=== PATIENT | female | born 1990 | race American Indian/Alaskan Native ===

== ENCOUNTER 2017-08-29 10:35 | Emergency (ER) | payer MEDICAID ==
[2017-08-29] MEDS ORDERED: MOTRIN PO ONE (10:59)
--- NOTE | 2017-08-29 11:01 | Emergency Department Report ---
Blank Doc - Documentation Documentation: Patient is a 26-year-old female who states last night she was angry and she hit her hand on her radial. Patient has swelling to the area of the fourth and fifth metacarpal. There is loss of the knuckle. Patient is unable to make a fist. Patient is adamant that she did not punch anything however she does have the swelling distribution of a boxer's fracture. Patient will be sent for x- ray for further evaluation patient will be reassessed.
--- NOTE | 2017-08-29 11:44 | XRay Report ---
RIGHT HAND RADIOGRAPHS INDICATION: Right hand injury. COMPARISON: None similar at this institution. FINDINGS: AP, lateral and oblique right hand radiographs demonstrate a possibly comminuted acute fracture involving the fifth metacarpal distally about the neck with angulation of approximately 130degrees on the oblique view with its apex pointing dorsal. Overlying soft tissues swelling also noted. No joint involvement. Normal remainder exam. CONCLUSION: Acute angulated, likely comminuted fracture involving the right fifth metacarpal distally with overlying soft tissue swelling, as described. Please correlate. Thank you for the opportunity to participate in this patient's care.
[2017-08-29] MEDS ORDERED: NORCO 5/325 PO ONE (11:52)
--- NOTE | 2017-08-29 11:52 | Emergency Department Report ---
ED Upper Extremity Inj HPI - General Chief Complaint: Extremity Injury, Upper Stated Complaint: RIGHT HAND INJURY/SWOLLEN Time Seen by Provider: 08/29/17 10:51 Source: patient Mode of arrival: Ambulatory Limitations: No Limitations - History of Present Illness Initial Comments: Patient is a 26-year-old female who states last night she was angry and she hit her hand on her radial. Patient has swelling to the area of the fourth and fifth metacarpal. There is loss of the knuckle. Patient is unable to make a fist. Patient is adamant that she did not punch anything however she does have the swelling distribution of a boxer's fracture. Patient will be sent for x- ray for further evaluation patient will be reassessed. Complaint: Injury to:: right, hand Other Extremity Injury: Hand: Right Handedness: right Place: home Severity scale (0 -10): 5 Improves With: none Worsens With: movement of extremity Context: direct blow - Related Data Previous Rx's Medication Instructions Recorded Last Taken Type HYDROcodone/APAP 5-325 [[place] 1 each PO Q6HR PRN #20 tablet 08/29/17 Unknown Rx 5/325] Allergies Allergy/AdvReac Type Severity Reaction Status Date / Time No Known Allergies Allergy Unverified 08/29/17 10:38 ED Review of Systems ROS: Stated complaint: RIGHT HAND INJURY/SWOLLEN Other details as noted in HPI Constitutional: denies: chills, fever Eyes: denies: eye pain, eye discharge, vision change ENT: denies: ear pain, throat pain Respiratory: denies: cough, shortness of breath, wheezing Cardiovascular: denies: chest pain, palpitations Endocrine: no symptoms reported Gastrointestinal: denies: abdominal pain, nausea, diarrhea Genitourinary: denies: urgency, dysuria, discharge Musculoskeletal: myalgia Skin: denies: rash, lesions Neurological: denies: headache, weakness, paresthesias Psychiatric: denies: anxiety, depression Hematological/Lymphatic: denies: easy bleeding, easy bruising ED Past Medical Hx - Past Medical History Previous Medical History?: No - Surgical History Past Surgical History?: No - Social History Smoking Status: Current Every Day Smoker Substance Use Type: Alcohol - Medications Home Medications: Home Medications Medication Instructions Recorded Confirmed Last Taken Type HYDROcodone/APAP 5-325 [[place] 1 each PO Q6HR PRN #20 tablet 08/29/17 Unknown Rx 5/325] ED Physical Exam - General Limitations: No Limitations General appearance: alert, in no apparent distress - Head Head exam: Present: atraumatic, normocephalic - Eye Eye exam: Present: normal appearance - ENT ENT exam: Present: mucous membranes moist - Neck Neck exam: Present: normal inspection - Respiratory Respiratory exam: Present: normal lung sounds bilaterally. Absent: respiratory distress - Cardiovascular Cardiovascular Exam: Present: regular rate, normal rhythm. Absent: systolic murmur, diastolic murmur, rubs, gallop - GI/Abdominal GI/Abdominal exam: Present: soft, normal bowel sounds - Rectal Rectal exam: Present: deferred - Extremities Exam Extremities exam: Present: tenderness (rigtht post hand swelling mild deformity ), normal capillary refill, joint swelling. 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 Absent: abrasion, laceration, ecchymosis, crepidus , dislocation, erythema, nail avulsion, subungual hematoma Neuro motor exam: Present: wrist extension intact, thumb opposition intact, thumb IP flexion intact, thumb adduction intact, fingers 2-5 abduction intact Neurosensory exam: Present: 2-point discrimination, radial nerve intact, ulnar nerve intact, median nerve intact Vascular: Present: radial pulse, brachial pulse, ulnar pulse. Absent: vascular compromise, Pallo, normal capillary refill, pulse deficit radial art, pulse deficit ulnar art, pulse deficit brachial art - Back Exam Back exam: Present: normal inspection - Neurological Exam Neurological exam: Present: alert, oriented X3, CN II-XII intact, normal gait, reflexes normal - Psychiatric Psychiatric exam: Present: normal affect - Skin Skin exam: Present: warm, dry, intact, normal color. 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 Zapien will call in am to confirm appointment, rx for lortab prn pain, given splint care instructions, pt verbalized agreement and understanding with discharge plan. Critical care attestation.: If time is entered above; I have spent that time in minutes in the direct care of this critically ill patient, excluding procedure time. ED Disposition Clinical Impression: Boxers fracture Qualifiers: Encounter type: initial encounter Fracture type: closed Qualified Code(s): S62.339A - Displaced fracture of neck of unspecified metacarpal bone, initial encounter for closed fracture Disposition: TO HOME OR SELFCARE Is pt being admited?: No Does the pt Need Aspirin: No Condition: Good Instructions: Boxer Fracture (ED), Hand Fracture (ED), Splint Care (ED) Prescriptions: HYDROcodone/APAP 5-325 [[place] 5/325] 1 each PO Q6HR PRN #20 tablet PRN Reason: Pain Referrals: STEF ZAPIEN MD [Staff Physician] - 3-5 Days Forms: Work/School Release Form(ED) Time of Disposition: 12:44
[2017-08-29 12:52] VITALS: BP 125/86
== END 2017-08-29 12:50 | disposition home or self-care (01) ==
LOC: ED 10:35
DX: S62.339A Displaced fracture of neck of unspecified metacarpal bone, initial encounter for closed fracture (principal); F17.200 Nicotine dependence, unspecified, uncomplicated; W22.8XXA Striking against or struck by other objects, initial encounter; Y93.89 Activity, other specified; Y92.89 Other specified places as the place of occurrence of the external cause; Y99.8 Other external cause status

== ENCOUNTER 2020-07-14 17:13 | Outpatient (CLI) | payer MEDICAID ==
[2020-07-14] MEDS ORDERED: LACTATED RINGERS 500 ML IV ONE (17:55)
[2020-07-14] MEDS ORDERED: FLUCONAZOLE 100 MG TAB PO ONE (18:23)
[2020-07-14 18:36] VITALS: BP 121/67
== END 2020-07-14 18:48 | disposition home or self-care (01) ==
LOC: TRG 17:13 → APU 17:15 → TRG 18:48
PROVIDERS: ATTEND Obstetrics & Gynecology
DX: O26.893 Other specified pregnancy related conditions, third trimester (principal); N89.8 Other specified noninflammatory disorders of vagina; Z3A.32 32 weeks gestation of pregnancy
CPT/HCPCS: 59025

== ENCOUNTER 2020-08-26 11:38 | Inpatient (IN) | payer MEDICAID ==
[2020-08-26] MEDS ORDERED: OXYTOCIN 10 UNIT/1 ML INJ IM PRN (14:44)
[2020-08-26] MEDS ORDERED: fentaNYL 100 MCG/2 ML INJ IV PRN (14:44)
[2020-08-26] MEDS ORDERED: LIDOCAINE (2%) 20 MG/1 ML VIAL 20 ML MDV INFILTRATI NR (14:44)
[2020-08-26] MEDS ORDERED: miSOPROStol 200 MCG TAB PR PRN (14:44)
[2020-08-26] MEDS ORDERED: TERBUTALINE 1 MG/1 ML INJ SUB-Q PRN (14:44)
[2020-08-26] MEDS ORDERED: NalbUPHINE 10 MG/1 ML INJ IV PRN (15:00)
[2020-08-26] MEDS ORDERED: PROMETHAZINE 25 MG TAB PO PRN (15:00)
[2020-08-26] MEDS ORDERED: ePHEDrine SULFATE 50 MG/1 ML INJ IV PRN (15:00)
[2020-08-26] MEDS ORDERED: METHYLERGONOVINE MALEATE 0.2 MG/ML VIAL IM PRN (15:00)
[2020-08-26] MEDS ORDERED: LOPERAMIDE 2 MG CAP PO PRN (15:00)
[2020-08-26] MEDS ORDERED: CARBOPROST TROMETHAMINE 250 MCG/1 ML INJ IM PRN (15:00)
[2020-08-26] MEDS ORDERED: BUTORPHANOL 2 MG/1 ML INJ IV PRN ×2 (15:00)
[2020-08-26] MEDS ORDERED: NALOXONE 0.4 MG/1 ML INJ IV PRN (15:00)
[2020-08-26 15:40] LABS: Hematocrit 32.2 % (30.3-42.9); Hemoglobin 10.6 gm/dl (10.1-14.3); Mean Corpuscular HGB Conc 33 % (30-34); Mean Corpuscular Volume 94 fl (79-97); Platelet Count 106 K/mm3 (140-440); Red Blood Count 3.42 M/mm3 (3.65-5.03); Red Cell Distribution Width 13.1 % (13.2-15.2)
[2020-08-26] MEDS: LACTATED RINGERS 1,000 ML IV SCH (16:23)
[2020-08-26] MEDS: OXYTOCIN DRIP 30 UNITS/500 ML BAG IV SCH (16:48)
[2020-08-26] MEDS ORDERED: MINERAL OIL 30 ML ORAL LIQD PO PRN (22:00)
--- NOTE | 2020-08-26 22:37 | Progress Note ---
Assessment and Plan INDUCTION OF LABOR AT 39 WEEKS WITH THROMBOCYTOPENIA. Subjective Date of service: 08/26/20 Principal diagnosis: 39 WKS IUP, THROMBOCYTOPENIA Objective - Constitutional Vitals: Vital Signs - 12hr 08/26/20 08/26/20 08/26/20 12:00 15:04 15:15 Temperature 98.0 F Pulse Rate 102 H 96 H 108 H Respiratory 20 Rate Blood Pressure 134/80 Blood Pressure 134/80 [Right] O2 Sat by Pulse 100 100 Oximetry 08/26/20 08/26/20 08/26/20 15:20 15:22 15:26 Temperature Pulse Rate 110 H 101 H Respiratory Rate Blood Pressure Blood Pressure [Right] O2 Sat by Pulse 99 89 99 Oximetry 08/26/20 08/26/20 08/26/20 15:31 15:34 15:36 Temperature Pulse Rate 91 H 98 H 95 H Respiratory Rate Blood Pressure 135/78 Blood Pressure [Right] O2 Sat by Pulse 97 98 Oximetry 08/26/20 08/26/20 08/26/20 15:41 15:46 15:51 Temperature Pulse Rate 83 93 H 106 H Respiratory Rate Blood Pressure Blood Pressure [Right] O2 Sat by Pulse 97 97 95 Oximetry 08/26/20 08/26/20 08/26/20 15:56 16:01 16:06 Temperature Pulse Rate 100 H 92 H 82 Respiratory Rate Blood Pressure Blood Pressure [Right] O2 Sat by Pulse 94 97 98 Oximetry 08/26/20 08/26/20 08/26/20 16:11 16:16 16:21 Temperature Pulse Rate 101 H 84 103 H Respiratory Rate Blood Pressure Blood Pressure [Right] O2 Sat by Pulse 98 98 97 Oximetry 08/26/20 08/26/20 08/26/20 16:25 16:26 16:31 Temperature Pulse Rate 102 H 109 H 105 H Respiratory Rate Blood Pressure 131/73 Blood Pressure [Right] O2 Sat by Pulse 97 97 Oximetry 08/26/20 08/26/20 08/26/20 16:36 16:41 16:46 Temperature Pulse Rate 94 H 99 H 104 H Respiratory Rate Blood Pressure Blood Pressure [Right] O2 Sat by Pulse 97 97 97 Oximetry 08/26/20 08/26/20 08/26/20 16:51 16:56 17:01 Temperature Pulse Rate 88 89 89 Respiratory Rate Blood Pressure Blood Pressure [Right] O2 Sat by Pulse 97 99 98 Oximetry 08/26/20 08/26/20 08/26/20 17:06 17:11 17:16 Temperature Pulse Rate 89 94 H 82 Respiratory Rate Blood Pressure Blood Pressure [Right] O2 Sat by Pulse 98 98 98 Oximetry 08/26/20 08/26/20 08/26/20 17:21 17:26 17:31 Temperature Pulse Rate 91 H 95 H 88 Respiratory Rate Blood Pressure Blood Pressure [Right] O2 Sat by Pulse 98 98 98 Oximetry 08/26/20 08/26/20 08/26/20 17:36 17:41 17:46 Temperature Pulse Rate 100 H 92 H 97 H Respiratory Rate Blood Pressure Blood Pressure [Right] O2 Sat by Pulse 97 98 97 Oximetry 08/26/20 08/26/20 08/26/20 17:51 17:55 17:56 Temperature Pulse Rate 91 H 87 99 H Respiratory Rate Blood Pressure 148/86 Blood Pressure [Right] O2 Sat by Pulse 96 97 Oximetry 08/26/20 08/26/20 08/26/20 17:58 18:01 18:06 Temperature Pulse Rate 83 89 94 H Respiratory Rate Blood Pressure 137/80 Blood Pressure [Right] O2 Sat by Pulse 99 97 Oximetry 08/26/20 08/26/20 08/26/20 18:11 18:16 18:21 Temperature Pulse Rate 79 99 H 89 Respiratory Rate Blood Pressure Blood Pressure [Right] O2 Sat by Pulse 98 97 98 Oximetry 08/26/20 08/26/20 08/26/20 18:26 18:31 18:36 Temperature Pulse Rate 85 90 76 Respiratory Rate Blood Pressure Blood Pressure [Right] O2 Sat by Pulse 98 98 98 Oximetry 08/26/20 08/26/20 08/26/20 18:41 18:46 18:51 Temperature Pulse Rate 91 H 97 H 88 Respiratory Rate Blood Pressure Blood Pressure [Right] O2 Sat by Pulse 97 98 96 Oximetry 08/26/20 08/26/20 08/26/20 18:56 19:02 19:07 Temperature Pulse Rate 99 H 87 79 Respiratory Rate Blood Pressure Blood Pressure [Right] O2 Sat by Pulse 98 97 98 Oximetry 08/26/20 08/26/20 08/26/20 19:12 19:17 19:22 Temperature Pulse Rate 90 82 86 Respiratory Rate Blood Pressure Blood Pressure [Right] O2 Sat by Pulse 97 98 98 Oximetry 08/26/20 08/26/20 08/26/20 19:27 19:32 19:37 Temperature Pulse Rate 88 94 H 85 Respiratory Rate Blood Pressure Blood Pressure [Right] O2 Sat by Pulse 98 97 97 Oximetry 08/26/20 08/26/20 08/26/20 19:41 19:42 19:47 Temperature Pulse Rate 98 H 100 H 95 H Respiratory Rate Blood Pressure Blood Pressure [Right] O2 Sat by Pulse 94 93 98 Oximetry 08/26/20 08/26/20 08/26/20 19:52 19:57 20:02 Temperature Pulse Rate 88 95 H 103 H Respiratory Rate Blood Pressure Blood Pressure [Right] O2 Sat by Pulse 99 99 98 Oximetry 08/26/20 08/26/20 08/26/20 20:07 20:11 20:12 Temperature Pulse Rate 104 H 94 H 95 H Respiratory Rate Blood Pressure 138/88 Blood Pressure [Right] O2 Sat by Pulse 100 98 Oximetry 08/26/20 08/26/20 08/26/20 20:17 20:22 20:27 Temperature Pulse Rate 89 82 86 Respiratory Rate Blood Pressure Blood Pressure [Right] O2 Sat by Pulse 97 98 99 Oximetry 08/26/20 08/26/20 08/26/20 20:32 20:37 20:42 Temperature Pulse Rate 83 102 H 77 Respiratory Rate Blood Pressure Blood Pressure [Right] O2 Sat by Pulse 99 100 97 Oximetry 08/26/20 08/26/20 08/26/20 20:47 20:52 20:55 Temperature Pulse Rate 100 H 69 80 Respiratory Rate Blood Pressure Blood Pressure [Right] O2 Sat by Pulse 98 98 93 Oximetry 08/26/20 08/26/20 08/26/20 20:57 21:02 21:07 Temperature Pulse Rate 94 H 74 108 H Respiratory Rate Blood Pressure Blood Pressure [Right] O2 Sat by Pulse 99 98 98 Oximetry 08/26/20 08/26/20 08/26/20 21:12 21:17 21:22 Temperature Pulse Rate 67 94 H 90 Respiratory Rate Blood Pressure Blood Pressure [Right] O2 Sat by Pulse 98 98 98 Oximetry 08/26/20 08/26/20 08/26/20 21:27 21:32 21:37 Temperature Pulse Rate 95 H 101 H 90 Respiratory Rate Blood Pressure Blood Pressure [Right] O2 Sat by Pulse 98 92 97 Oximetry 08/26/20 08/26/20 08/26/20 21:42 22:01 22:03 Temperature Pulse Rate 90 99 H 87 Respiratory Rate Blood Pressure Blood Pressure [Right] O2 Sat by Pulse 99 100 90 Oximetry 08/26/20 08/26/20 08/26/20 22:06 22:11 22:16 Temperature Pulse Rate 108 H 99 H 67 Respiratory Rate Blood Pressure Blood Pressure [Right] O2 Sat by Pulse 98 98 98 Oximetry 08/26/20 08/26/20 08/26/20 22:21 22:26 22:29 Temperature Pulse Rate 100 H 77 88 Respiratory Rate Blood Pressure 130/72 Blood Pressure [Right] O2 Sat by Pulse 98 98 Oximetry 08/26/20 22:31 Temperature Pulse Rate 69 Respiratory Rate Blood Pressure Blood Pressure [Right] O2 Sat by Pulse 97 Oximetry - Genitourinary Female genitourinary: other (CX 2 CMS 50%,-4, BOW INTACT.) - Labs CBC & Chem 7: 08/26/20 15:05 Labs: Abnormal lab results 08/26/20 Range/Units 15:05 WBC 12.2 H (4.5-11.0) K/mm3 RBC 3.42 L (3.65-5.03) M/mm3 RDW 13.1 L (13.2-15.2) % Plt Count 106 L (140-440) K/mm3 Medications & Allergies - Medications Allergies/Adverse Reactions: Allergies No Known Allergies Allergy (Verified 07/14/20 17:56) Home Medications: Home Medications Medication Instructions Recorded Confirmed Last Taken Type HYDROcodone/APAP 5-325 [[place] 1 each PO Q6HR PRN #20 tablet 08/29/17 Unknown Rx 5/325] Active Medications: Generic Name Dose Route Start Last Admin Trade Name Freq PRN Reason Stop Dose Admin Acetaminophen 650 mg 08/26/20 15:00 Acetaminophen 325 Mg Tab PO Q4H PRN Pain, Mild (1-3) Butorphanol Tartrate 1 mg 08/26/20 15:00 Butorphanol 2 Mg/1 Ml Inj IV Q2H PRN Pain, Moderate(4-6) LABOR PAIN Butorphanol Tartrate 2 mg 08/26/20 15:00 Butorphanol 2 Mg/1 Ml Inj IV Q2H PRN Pain , Severe (7-10) Carboprost Tromethamine 250 mcg 08/26/20 15:00 Carboprost Tromethamine 250 Mcg/1 Ml Inj IM 08/27/20 14:59 ONCE PRN Uterine Bleeding Ephedrine Sulfate 10 mg 08/26/20 15:00 Ephedrine Sulfate 50 Mg/1 Ml Inj IV Q2M PRN Hypotension Fentanyl 100 mcg 08/26/20 14:44 Fentanyl 100 Mcg/2 Ml Inj IV Q2H PRN Pain,Severe (7-10) LABOR PAIN Oxytocin/Sodium Chloride 30 units in 500 mls @ 2 mls/hr 08/26/20 15:00 08/26/20 22:00 Pitocin/Ns 30 Unit/500ml IV 12 ml/hr TITR KERRY 12 mls/hr Titration Protocol Lactated Ringer's 1,000 mls @ 125 mls/hr 08/26/20 15:00 08/26/20 16:23 Lactated Ringers IV 125 mls/hr DIRECT KERRY Administration Oxytocin/Sodium Chloride 30 units in 500 mls @ 40 mls/hr 08/26/20 15:00 Pitocin/Ns 30 Unit/500ml IV TITR KERRY Protocol Lidocaine 20 ml 08/26/20 14:44 Lidocaine (2%) 20 Mg/1 Ml Vial 20 Ml Mdv INFILTRATI 08/26/20 23:00 ONCE NR Loperamide HCl 2 mg 08/26/20 15:00 Loperamide 2 Mg Cap PO 08/27/20 14:59 ONCE PRN give with Hemabate Methylergonovine Maleate 0.2 mg 08/26/20 15:00 Methylergonovine Maleate 0.2 Mg/Ml Vial IM 08/27/20 14:59 ONCE PRN Uterine Bleeding Mineral Oil 30 ml 08/26/20 22:00 Mineral Oil 30 Ml Oral Liqd PO QHS PRN Constipation Misoprostol 800 mcg 08/26/20 14:44 Misoprostol 200 Mcg Tab IA 08/27/20 14:43 ONCE PRN Uterine Bleeding Nalbuphine HCl 10 mg 08/26/20 15:00 Nalbuphine 10 Mg/1 Ml Inj IV Q2H PRN Pain, Moderate (4-6) Naloxone HCl 0.1 mg 08/26/20 15:00 Naloxone 0.4 Mg/1 Ml Inj IV Q2MIN PRN Res Rate </= 8 or 02 SAT < 92% Oxytocin 10 unit 08/26/20 14:44 Oxytocin 10 Unit/1 Ml Inj IM 08/27/20 14:43 ONCE PRN Uterine Bleeding Promethazine HCl 25 mg 08/26/20 15:00 Promethazine 25 Mg Tab PO Q6H PRN Nausea And Vomiting Terbutaline Sulfate 0.25 mg 08/26/20 14:44 Terbutaline 1 Mg/1 Ml Inj SUB-Q 08/27/20 14:43 ONCE PRN Hyperstimulation/Hypertonicity
--- NOTE | 2020-08-26 22:45 | History and Physical Report ---
History of Present Illness Date of examination: 08/26/20 Date of admission: 08/26/20 Chief complaint: INDUCTION OF LABOR AT 39 WEEKS. History of present illness: This is Dr. Mkceon dictating history and physical patient alejandra Alicea. The patient is a 29-year-old Afro[place] female who was admitted at 39 weeks with thrombocytopenia for induction of labor. She is a 4 para 3-0-0-3 female last menstrual period 11/27/2019 EDC 09/02/2020 hemoglobin A1c was 4.4 platelet count was 121,000 on 06/12/2020 she has vitamin D deficiency vitamin D was prescribed. She has had 14 visits she also has been seen by [facility]. Patient blood type is O+ antibody screen is negative hematocrit 34.4% hemoglobin 11.2 Pap smear was normal rubella was immune VDRL was nonreactive urine culture screen was negative hip HIV test was negative. Platelet count was 197,000 GC and Chlamydia cultures were negative sickle screen not in the chart trichomonas test was negative she did have ultrasound at 21.6 weeks gestation her MSAFP with multiple markers was negative. She had ultrasound on 01/11/2020 26.4 weeks at [place]. Her diabetic screen was 122 VDRL was nonreactive group B strep test was negative HIV test was negative. She has been taking Flagyl terconazole vitamin D and Zofran. Past medical history is negative. No known allergies past medical history denies any medical problems in the past denies any surgery in the past ketamine was age 15 and this is her fourth she has had 3 term pregnancies no miscarriages social history patient is single she does not smoke or drink alcohol or use illicit drugs. In 2011 the patient had a GC test that was positive and she was treated. 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) Family/Genetic History: none Social history: single - Obstetrical History Expected Date of Delivery: 09/02/20 Actual Gestation: 39 Week(s) 0 Day(s) : 4 Para: 3 Hx # Term Pregnancies: 3 Number of Pregnancies: 0 Spontaneous Abortions: 0 Induced : 0 Number of Living Children: 3 Medications and Allergies Allergies Allergy/AdvReac Type Severity Reaction Status Date / Time No Known Allergies Allergy Verified 07/14/20 17:56 Home Medications Medication Instructions Recorded Confirmed Last Taken Type HYDROcodone/APAP 5-325 [[place] 1 each PO Q6HR PRN #20 tablet 08/29/17 Unknown Rx 5/325] Active Meds: Active Medications Acetaminophen (Acetaminophen 325 Mg Tab) 650 mg PO Q4H PRN PRN Reason: Pain, Mild (1-3) Butorphanol Tartrate (Butorphanol 2 Mg/1 Ml Inj) 1 mg IV Q2H PRN PRN Reason: Pain, Moderate(4-6) LABOR PAIN Butorphanol Tartrate (Butorphanol 2 Mg/1 Ml Inj) 2 mg IV Q2H PRN PRN Reason: Pain , Severe (7-10) Carboprost Tromethamine (Carboprost Tromethamine 250 Mcg/1 Ml Inj) 250 mcg IM ONCE PRN PRN Reason: Uterine Bleeding Stop: 08/27/20 14:59 Ephedrine Sulfate (Ephedrine Sulfate 50 Mg/1 Ml Inj) 10 mg IV Q2M PRN PRN Reason: Hypotension Fentanyl (Fentanyl 100 Mcg/2 Ml Inj) 100 mcg IV Q2H PRN PRN Reason: Pain,Severe (7-10) LABOR PAIN Oxytocin/Sodium Chloride (Pitocin/Ns 30 Unit/500ml) 30 units in 500 mls @ 2 mls/hr IV TITR KERRY; Protocol Last Titration: 08/26/20 22:00 Dose: 12 ml/hr, 12 mls/hr Documented by: Lactated Ringer's (Lactated Ringers) 1,000 mls @ 125 mls/hr IV DIRECT KERRY Last Admin: 08/26/20 16:23 Dose: 125 mls/hr Documented by: Oxytocin/Sodium Chloride (Pitocin/Ns 30 Unit/500ml) 30 units in 500 mls @ 40 mls/hr IV TITR KERRY; Protocol Lidocaine (Lidocaine (2%) 20 Mg/1 Ml Vial 20 Ml Mdv) 20 ml INFILTRATI ONCE NR Stop: 08/26/20 23:00 Loperamide HCl (Loperamide 2 Mg Cap) 2 mg PO ONCE PRN PRN Reason: give with Hemabate Stop: 08/27/20 14:59 Methylergonovine Maleate (Methylergonovine Maleate 0.2 Mg/Ml Vial) 0.2 mg IM ONCE PRN PRN Reason: Uterine Bleeding Stop: 08/27/20 14:59 Mineral Oil (Mineral Oil 30 Ml Oral Liqd) 30 ml PO QHS PRN PRN Reason: Constipation Misoprostol (Misoprostol 200 Mcg Tab) 800 mcg ID ONCE PRN PRN Reason: Uterine Bleeding Stop: 08/27/20 14:43 Nalbuphine HCl (Nalbuphine 10 Mg/1 Ml Inj) 10 mg IV Q2H PRN PRN Reason: Pain, Moderate (4-6) Naloxone HCl (Naloxone 0.4 Mg/1 Ml Inj) 0.1 mg IV Q2MIN PRN PRN Reason: Res Rate </= 8 or 02 SAT < 92% Oxytocin (Oxytocin 10 Unit/1 Ml Inj) 10 unit IM ONCE PRN PRN Reason: Uterine Bleeding Stop: 08/27/20 14:43 Promethazine HCl (Promethazine 25 Mg Tab) 25 mg PO Q6H PRN PRN Reason: Nausea And Vomiting Terbutaline Sulfate (Terbutaline 1 Mg/1 Ml Inj) 0.25 mg SUB-Q ONCE PRN PRN Reason: Hyperstimulation/Hypertonicity Stop: 08/27/20 14:43 Review of Systems All systems: negative - Vital Signs Vital signs: Vital Signs Temp Pulse Resp BP Pulse Ox 98.0 F 102 H 20 134/80 100 08/26/20 12:00 08/26/20 12:00 08/26/20 12:00 08/26/20 12:00 08/26/20 12:00 Temp Pulse Resp BP Pulse Ox 98.0 F 72 20 130/72 99 08/26/20 12:00 08/26/20 22:36 08/26/20 12:00 08/26/20 22:29 08/26/20 22:36 - Physical Exam Breasts: Cardiovascular: Regular rate, Normal S1, Normal S2 Lungs: Positive: Clear to auscultation, Normal air movement Abdomen: Positive: normal appearance, soft, normal bowel sounds. Negative: distention, tenderness Genitourinary (Female): Positive: normal external genitalia, normal perenium Vulva: both: normal Vagina: Positive: normal moisture. Negative: discharge Cervix: Positive: other (2 CMS , 75%,-4, BOW INTACT.). Negative: lesion, discharge Uterus: Positive: normal size, enlarged, normal contour, other (TERM SIZE) Adnexa: both: normal Anus/Rectum: Positive: normal perianal skin, heme negative. Negative: rectal mass, hemorrhoids Extremities: Positive: normal Deep Tendon Reflex Grade: Normal +2 - Obstetrical FHR: category 1 Uterine Contraction Monitor Mode: External Cervical Dilatation: 2 Cervical Effacement Percentage: 75 station: -4 Uterine Contraction Frequency (min): 4 Uterine Contraction Duration: 1 MIN Uterine Contraction Pattern: Regular Uterine Tone Measurement Phase: Contraction Uterine Contraction Intensity: Strong/Firm Results Result Diagrams: 08/26/20 15:05 Abnormal lab results 08/26/20 Range/Units 15:05 WBC 12.2 H (4.5-11.0) K/mm3 RBC 3.42 L (3.65-5.03) M/mm3 RDW 13.1 L (13.2-15.2) % Plt Count 106 L (140-440) K/mm3 All other labs normal. Assessment and Plan INDUCTION OF LABOR AT 39 WEEKS WITH THROMBOCYTOPENIA.
--- NOTE | 2020-08-27 06:44 | Progress Note ---
Assessment and Plan INDUCTION OF LABOR AT 39 WEEKS WITH THROMBOCYTOPENIA. Subjective Date of service: 08/27/20 Principal diagnosis: 39 WKS IUP, THROMBOCYTOPENIA Objective - Constitutional Vitals: Vital Signs - 12hr 08/26/20 08/26/20 08/26/20 18:46 18:51 18:56 Pulse Rate 97 H 88 99 H Blood Pressure O2 Sat by Pulse 98 96 98 Oximetry 08/26/20 08/26/20 08/26/20 19:02 19:07 19:12 Pulse Rate 87 79 90 Blood Pressure O2 Sat by Pulse 97 98 97 Oximetry 08/26/20 08/26/20 08/26/20 19:17 19:22 19:27 Pulse Rate 82 86 88 Blood Pressure O2 Sat by Pulse 98 98 98 Oximetry 08/26/20 08/26/20 08/26/20 19:32 19:37 19:41 Pulse Rate 94 H 85 98 H Blood Pressure O2 Sat by Pulse 97 97 94 Oximetry 08/26/20 08/26/20 08/26/20 19:42 19:47 19:52 Pulse Rate 100 H 95 H 88 Blood Pressure O2 Sat by Pulse 93 98 99 Oximetry 08/26/20 08/26/20 08/26/20 19:57 20:02 20:07 Pulse Rate 95 H 103 H 104 H Blood Pressure O2 Sat by Pulse 99 98 100 Oximetry 08/26/20 08/26/20 08/26/20 20:11 20:12 20:17 Pulse Rate 94 H 95 H 89 Blood Pressure 138/88 O2 Sat by Pulse 98 97 Oximetry 08/26/20 08/26/20 08/26/20 20:22 20:27 20:32 Pulse Rate 82 86 83 Blood Pressure O2 Sat by Pulse 98 99 99 Oximetry 08/26/20 08/26/20 08/26/20 20:37 20:42 20:47 Pulse Rate 102 H 77 100 H Blood Pressure O2 Sat by Pulse 100 97 98 Oximetry 08/26/20 08/26/20 08/26/20 20:52 20:55 20:57 Pulse Rate 69 80 94 H Blood Pressure O2 Sat by Pulse 98 93 99 Oximetry 08/26/20 08/26/20 08/26/20 21:02 21:07 21:12 Pulse Rate 74 108 H 67 Blood Pressure O2 Sat by Pulse 98 98 98 Oximetry 08/26/20 08/26/20 08/26/20 21:17 21:22 21:27 Pulse Rate 94 H 90 95 H Blood Pressure O2 Sat by Pulse 98 98 98 Oximetry 08/26/20 08/26/20 08/26/20 21:32 21:37 21:42 Pulse Rate 101 H 90 90 Blood Pressure O2 Sat by Pulse 92 97 99 Oximetry 08/26/20 08/26/20 08/26/20 22:01 22:03 22:06 Pulse Rate 99 H 87 108 H Blood Pressure O2 Sat by Pulse 100 90 98 Oximetry 08/26/20 08/26/20 08/26/20 22:11 22:16 22:21 Pulse Rate 99 H 67 100 H Blood Pressure O2 Sat by Pulse 98 98 98 Oximetry 08/26/20 08/26/20 08/26/20 22:26 22:29 22:31 Pulse Rate 77 88 69 Blood Pressure 130/72 O2 Sat by Pulse 98 97 Oximetry 08/26/20 08/26/20 08/26/20 22:36 22:40 22:41 Pulse Rate 72 90 72 Blood Pressure 119/76 O2 Sat by Pulse 99 98 Oximetry 08/26/20 08/26/20 08/26/20 22:46 22:51 22:56 Pulse Rate 86 82 80 Blood Pressure O2 Sat by Pulse 97 98 99 Oximetry 08/26/20 08/26/20 08/26/20 23:01 23:06 23:11 Pulse Rate 77 76 98 H Blood Pressure O2 Sat by Pulse 99 98 98 Oximetry 08/26/20 08/26/20 08/26/20 23:12 23:16 23:21 Pulse Rate 70 69 77 Blood Pressure 120/66 O2 Sat by Pulse 97 99 Oximetry 08/26/20 08/26/20 08/26/20 23:26 23:31 23:36 Pulse Rate 79 83 75 Blood Pressure O2 Sat by Pulse 99 99 98 Oximetry 08/26/20 08/26/20 08/26/20 23:41 23:46 23:51 Pulse Rate 96 H 71 74 Blood Pressure 121/68 O2 Sat by Pulse 99 96 98 Oximetry 08/26/20 08/27/20 08/27/20 23:56 00:01 00:06 Pulse Rate 76 72 72 Blood Pressure O2 Sat by Pulse 98 96 98 Oximetry 0608/27/20 08/27/20 00:10 00:11 00:16 Pulse Rate 71 73 70 Blood Pressure 123/73 O2 Sat by Pulse 97 97 Oximetry 08/27/20 08/27/20 08/27/20 00:21 00:26 00:31 Pulse Rate 79 78 64 Blood Pressure O2 Sat by Pulse 97 96 98 Oximetry 08/27/20 08/27/20 08/27/20 00:37 00:41 00:47 Pulse Rate 74 87 67 Blood Pressure O2 Sat by Pulse 97 97 97 Oximetry 08/27/20 08/27/20 08/27/20 00:51 00:56 00:58 Pulse Rate 63 69 64 Blood Pressure O2 Sat by Pulse 94 97 92 Oximetry 08/27/20 08/27/20 08/27/20 01:02 01:04 01:07 Pulse Rate 67 64 78 Blood Pressure O2 Sat by Pulse 95 94 96 Oximetry 08/27/20 08/27/20 08/27/20 01:09 01:11 01:17 Pulse Rate 86 73 64 Blood Pressure 117/56 O2 Sat by Pulse 94 96 96 Oximetry 08/27/20 08/27/20 08/27/20 01:19 01:21 01:27 Pulse Rate 79 79 77 Blood Pressure O2 Sat by Pulse 88 99 97 Oximetry 08/27/20 08/27/20 08/27/20 01:31 01:37 01:40 Pulse Rate 71 65 66 Blood Pressure 129/73 O2 Sat by Pulse 98 98 Oximetry 08/27/20 08/27/20 08/27/20 01:41 01:47 01:51 Pulse Rate 63 58 L 63 Blood Pressure O2 Sat by Pulse 98 98 96 Oximetry 08/27/20 08/27/20 08/27/20 01:57 02:05 02:11 Pulse Rate 64 72 70 Blood Pressure O2 Sat by Pulse 97 91 99 Oximetry 08/27/20 08/27/20 08/27/20 02:16 02:21 02:26 Pulse Rate 67 70 64 Blood Pressure O2 Sat by Pulse 99 98 99 Oximetry 08/27/20 08/27/20 08/27/20 02:31 02:36 02:41 Pulse Rate 63 69 77 Blood Pressure O2 Sat by Pulse 97 97 94 Oximetry 08/27/20 08/27/20 08/27/20 02:46 02:51 02:56 Pulse Rate 73 70 92 H Blood Pressure O2 Sat by Pulse 95 98 97 Oximetry 08/27/20 08/27/20 08/27/20 03:01 03:06 03:11 Pulse Rate 59 L 66 61 Blood Pressure O2 Sat by Pulse 99 98 98 Oximetry 08/27/20 08/27/20 08/27/20 03:16 03:21 03:26 Pulse Rate 72 59 L 69 Blood Pressure O2 Sat by Pulse 99 97 97 Oximetry 08/27/20 08/27/20 08/27/20 03:31 03:33 03:36 Pulse Rate 75 88 73 Blood Pressure 136/90 O2 Sat by Pulse 98 97 Oximetry 08/27/20 08/27/20 08/27/20 03:41 03:42 03:46 Pulse Rate 68 80 67 Blood Pressure 114/67 O2 Sat by Pulse 98 99 Oximetry 08/27/20 08/27/20 08/27/20 03:51 03:55 04:01 Pulse Rate 60 56 L 59 L Blood Pressure O2 Sat by Pulse 98 97 97 Oximetry 08/27/20 08/27/20 08/27/20 04:06 04:10 04:11 Pulse Rate 61 60 60 Blood Pressure 124/68 O2 Sat by Pulse 97 97 Oximetry 08/27/20 08/27/20 08/27/20 04:16 04:20 04:26 Pulse Rate 58 L 60 63 Blood Pressure O2 Sat by Pulse 97 97 98 Oximetry 08/27/20 08/27/20 08/27/20 04:31 04:36 04:40 Pulse Rate 56 L 77 60 Blood Pressure 122/73 O2 Sat by Pulse 97 98 Oximetry 08/27/20 08/27/20 08/27/20 04:41 04:46 04:51 Pulse Rate 68 72 85 Blood Pressure O2 Sat by Pulse 97 98 99 Oximetry 08/27/20 08/27/20 08/27/20 04:56 05:01 05:05 Pulse Rate 68 75 65 Blood Pressure O2 Sat by Pulse 98 98 98 Oximetry 08/27/20 08/27/20 08/27/20 05:10 05:15 05:20 Pulse Rate 67 76 62 Blood Pressure O2 Sat by Pulse 98 98 98 Oximetry 08/27/20 08/27/20 08/27/20 05:25 05:30 05:35 Pulse Rate 58 L 61 62 Blood Pressure O2 Sat by Pulse 98 98 98 Oximetry 08/27/20 08/27/20 08/27/20 05:40 05:45 05:50 Pulse Rate 58 L 65 59 L Blood Pressure O2 Sat by Pulse 97 98 97 Oximetry 08/27/20 08/27/20 08/27/20 05:55 06:00 06:05 Pulse Rate 64 66 92 H Blood Pressure O2 Sat by Pulse 97 98 99 Oximetry 08/27/20 08/27/20 08/27/20 06:11 06:16 06:21 Pulse Rate 78 92 H 70 Blood Pressure O2 Sat by Pulse 99 98 97 Oximetry 08/27/20 08/27/20 08/27/20 06:26 06:31 06:36 Pulse Rate 66 59 L 75 Blood Pressure O2 Sat by Pulse 98 96 97 Oximetry 08/27/20 06:41 Pulse Rate 86 Blood Pressure O2 Sat by Pulse 98 Oximetry General appearance: Present: no acute distress, well-nourished - Genitourinary Female genitourinary: other (cx 2 cms,75%,-4, bow intact) - Labs CBC & Chem 7: 08/26/20 15:05 Labs: Abnormal lab results 08/26/20 Range/Units 15:05 WBC 12.2 H (4.5-11.0) K/mm3 RBC 3.42 L (3.65-5.03) M/mm3 RDW 13.1 L (13.2-15.2) % Plt Count 106 L (140-440) K/mm3 Medications & Allergies - Medications Allergies/Adverse Reactions: Allergies No Known Allergies Allergy (Verified 07/14/20 17:56) Home Medications: Home Medications Medication Instructions Recorded Confirmed Last Taken Type HYDROcodone/APAP 5-325 [Elsie 1 each PO Q6HR PRN #20 tablet 08/29/17 Unknown Rx 5/325] Active Medications: Generic Name Dose Route Start Last Admin Trade Name Freq PRN Reason Stop Dose Admin Acetaminophen 650 mg 08/26/20 15:00 Acetaminophen 325 Mg Tab PO Q4H PRN Pain, Mild (1-3) Butorphanol Tartrate 1 mg 08/26/20 15:00 Butorphanol 2 Mg/1 Ml Inj IV Q2H PRN Pain, Moderate(4-6) LABOR PAIN Butorphanol Tartrate 2 mg 08/26/20 15:00 Butorphanol 2 Mg/1 Ml Inj IV Q2H PRN Pain , Severe (7-10) Carboprost Tromethamine 250 mcg 08/26/20 15:00 Carboprost Tromethamine 250 Mcg/1 Ml Inj IM 08/27/20 14:59 ONCE PRN Uterine Bleeding Ephedrine Sulfate 10 mg 08/26/20 15:00 Ephedrine Sulfate 50 Mg/1 Ml Inj IV Q2M PRN Hypotension Fentanyl 100 mcg 08/26/20 14:44 Fentanyl 100 Mcg/2 Ml Inj IV Q2H PRN Pain,Severe (7-10) LABOR PAIN Oxytocin/Sodium Chloride 30 units in 500 mls @ 2 mls/hr 08/26/20 15:00 08/27 02:30 Pitocin/Ns 30 Unit/500ml IV 20 ml/hr TITR KERRY 20 mls/hr Titration Protocol Lactated Ringer's 1,000 mls @ 125 mls/hr 08/26/20 15:00 08/26/20 16:23 Lactated Ringers IV 125 mls/hr DIRECT KERRY Administration Oxytocin/Sodium Chloride 30 units in 500 mls @ 40 mls/hr 08/26/20 15:00 Pitocin/Ns 30 Unit/500ml IV TITR KERRY Protocol Loperamide HCl 2 mg 08/26/20 15:00 Loperamide 2 Mg Cap PO 08/27/20 14:59 ONCE PRN give with Hemabate Methylergonovine Maleate 0.2 mg 08/26/20 15:00 Methylergonovine Maleate 0.2 Mg/Ml Vial IM 08/27/20 14:59 ONCE PRN Uterine Bleeding Mineral Oil 30 ml 08/26/20 22:00 Mineral Oil 30 Ml Oral Liqd PO QHS PRN Constipation Misoprostol 800 mcg 08/26/20 14:44 Misoprostol 200 Mcg Tab IN 08/27/20 14:43 ONCE PRN Uterine Bleeding Nalbuphine HCl 10 mg 08/26/20 15:00 Nalbuphine 10 Mg/1 Ml Inj IV Q2H PRN Pain, Moderate (4-6) Naloxone HCl 0.1 mg 08/26/20 15:00 Naloxone 0.4 Mg/1 Ml Inj IV Q2MIN PRN Res Rate </= 8 or 02 SAT < 92% Oxytocin 10 unit 08/26/20 14:44 Oxytocin 10 Unit/1 Ml Inj IM 08/27/20 14:43 ONCE PRN Uterine Bleeding Promethazine HCl 25 mg 08/26/20 15:00 Promethazine 25 Mg Tab PO Q6H PRN Nausea And Vomiting Terbutaline Sulfate 0.25 mg 08/26/20 14:44 Terbutaline 1 Mg/1 Ml Inj SUB-Q 08/27/20 14:43 ONCE PRN Hyperstimulation/Hypertonicity
[2020-08-27] MEDS: LACTATED RINGERS 1,000 ML IV SCH ×2 (11:39→20:01)
[2020-08-27] MEDS: OXYTOCIN DRIP 30 UNITS/500 ML BAG IV SCH (11:43)
--- NOTE | 2020-08-27 11:44 | Progress Note ---
Assessment and Plan A: IUP @ 39.1wks IOL r/t Thrombocytopenia (plt 109) p: Continue monitoring on Pitocin Pain med/Epidural prn Anticipate - Patient Problems (1) Supervision of normal IUP (intrauterine ) in multigravida Current Visit: Yes Status: Acute (2) Acquired thrombocytopenia Current Visit: Yes Status: Acute Subjective - Subjective Date of service: 08/27/20 Principal diagnosis: 39 WKS IUP, THROMBOCYTOPENIA Patient reports: movement normal, contractions Objective - Vital Signs Vital Signs: Vital Signs - 12hr 08/26/20 08/26/20 08/26/20 23:36 23:41 23:46 Temperature Pulse Rate 75 96 H 71 Respiratory Rate Blood Pressure 121/68 Blood Pressure [Right] O2 Sat by Pulse 98 99 96 Oximetry 08/26/20 08/26/20 08/27/20 23:51 23:56 00:01 Temperature Pulse Rate 74 76 72 Respiratory Rate Blood Pressure Blood Pressure [Right] O2 Sat by Pulse 98 98 96 Oximetry 08/27/20 08/27/20 08/27/20 00:06 00:10 00:11 Temperature Pulse Rate 72 71 73 Respiratory Rate Blood Pressure 123/73 Blood Pressure [Right] O2 Sat by Pulse 98 97 Oximetry 08/27/20 08/27/20 08/27/20 00:16 00:21 00:26 Temperature Pulse Rate 70 79 78 Respiratory Rate Blood Pressure Blood Pressure [Right] O2 Sat by Pulse 97 97 96 Oximetry 08/27/20 08/27/20 08/27/20 00:31 00:37 00:41 Temperature Pulse Rate 64 74 87 Respiratory Rate Blood Pressure Blood Pressure [Right] O2 Sat by Pulse 98 97 97 Oximetry 08/27/20 08/27/20 08/27/20 00:47 00:51 00:56 Temperature Pulse Rate 67 63 69 Respiratory Rate Blood Pressure Blood Pressure [Right] O2 Sat by Pulse 97 94 97 Oximetry 08/27/20 08/27/20 08/27/20 00:58 01:02 01:04 Temperature Pulse Rate 64 67 64 Respiratory Rate Blood Pressure Blood Pressure [Right] O2 Sat by Pulse 92 95 94 Oximetry 08/27/20 08/27/20 08/27/20 01:07 01:09 01:11 Temperature Pulse Rate 78 86 73 Respiratory Rate Blood Pressure 117/56 Blood Pressure [Right] O2 Sat by Pulse 96 94 96 Oximetry 08/27/20 08/27/20 08/27/20 01:17 01:19 01:21 Temperature Pulse Rate 64 79 79 Respiratory Rate Blood Pressure Blood Pressure [Right] O2 Sat by Pulse 96 88 99 Oximetry 08/27/20 08/27/20 08/27/20 01:27 01:31 01:37 Temperature Pulse Rate 77 71 65 Respiratory Rate Blood Pressure Blood Pressure [Right] O2 Sat by Pulse 97 98 98 Oximetry 08/27/20 08/27/20 08/27/20 01:40 01:41 01:47 Temperature Pulse Rate 66 63 58 L Respiratory Rate Blood Pressure 129/73 Blood Pressure [Right] O2 Sat by Pulse 98 98 Oximetry 08/27/20 08/27/20 08/27/20 01:51 01:57 02:05 Temperature Pulse Rate 63 64 72 Respiratory Rate Blood Pressure Blood Pressure [Right] O2 Sat by Pulse 96 97 91 Oximetry 08/27/20 08/27/20 08/27/20 02:11 02:16 02:21 Temperature Pulse Rate 70 67 70 Respiratory Rate Blood Pressure Blood Pressure [Right] O2 Sat by Pulse 99 99 98 Oximetry 08/27/20 08/27/20 08/27/20 02:26 02:31 02:36 Temperature Pulse Rate 64 63 69 Respiratory Rate Blood Pressure Blood Pressure [Right] O2 Sat by Pulse 99 97 97 Oximetry 08/27/20 08/27/20 08/27/20 02:41 02:46 02:51 Temperature Pulse Rate 77 73 70 Respiratory Rate Blood Pressure Blood Pressure [Right] O2 Sat by Pulse 94 95 98 Oximetry 08/27/20 08/27/20 08/27/20 02:56 03:01 03:06 Temperature Pulse Rate 92 H 59 L 66 Respiratory Rate Blood Pressure Blood Pressure [Right] O2 Sat by Pulse 97 99 98 Oximetry 08/27/20 08/27/20 08/27/20 03:11 03:16 03:21 Temperature Pulse Rate 61 72 59 L Respiratory Rate Blood Pressure Blood Pressure [Right] O2 Sat by Pulse 98 99 97 Oximetry 08/27/20 08/27/20 08/27/20 03:26 03:31 03:33 Temperature Pulse Rate 69 75 88 Respiratory Rate Blood Pressure 136/90 Blood Pressure [Right] O2 Sat by Pulse 97 98 Oximetry 08/27/20 08/27/20 08/27/20 03:36 03:41 03:42 Temperature Pulse Rate 73 68 80 Respiratory Rate Blood Pressure 114/67 Blood Pressure [Right] O2 Sat by Pulse 97 98 Oximetry 08/27/20 08/27/20 08/27/20 03:46 03:51 03:55 Temperature Pulse Rate 67 60 56 L Respiratory Rate Blood Pressure Blood Pressure [Right] O2 Sat by Pulse 99 98 97 Oximetry 08/27/20 08/27/20 08/27/20 04:01 04:06 04:10 Temperature Pulse Rate 59 L 61 60 Respiratory Rate Blood Pressure 124/68 Blood Pressure [Right] O2 Sat by Pulse 97 97 Oximetry 08/27/20 08/27/20 08/27/20 04:11 04:16 04:20 Temperature Pulse Rate 60 58 L 60 Respiratory Rate Blood Pressure Blood Pressure [Right] O2 Sat by Pulse 97 97 97 Oximetry 08/27/20 08/27/20 08/27/20 04:26 04:31 04:36 Temperature Pulse Rate 63 56 L 77 Respiratory Rate Blood Pressure Blood Pressure [Right] O2 Sat by Pulse 98 97 98 Oximetry 08/27/20 08/27/20 08/27/20 04:40 04:41 04:46 Temperature Pulse Rate 60 68 72 Respiratory Rate Blood Pressure 122/73 Blood Pressure [Right] O2 Sat by Pulse 97 98 Oximetry 08/27/20 08/27/20 08/27/20 04:51 04:56 05:01 Temperature Pulse Rate 85 68 75 Respiratory Rate Blood Pressure Blood Pressure [Right] O2 Sat by Pulse 99 98 98 Oximetry 08/27/20 08/27/20 08/27/20 05:05 05:10 05:15 Temperature Pulse Rate 65 67 76 Respiratory Rate Blood Pressure Blood Pressure [Right] O2 Sat by Pulse 98 98 98 Oximetry 08/27/20 08/27/20 08/27/20 05:20 05:25 05:30 Temperature Pulse Rate 62 58 L 61 Respiratory Rate Blood Pressure Blood Pressure [Right] O2 Sat by Pulse 98 98 98 Oximetry 08/27/20 08/27/20 08/27/20 05:35 05:40 05:45 Temperature Pulse Rate 62 58 L 65 Respiratory Rate Blood Pressure Blood Pressure [Right] O2 Sat by Pulse 98 97 98 Oximetry 08/27/20 08/27/20 08/27/20 05:50 05:55 06:00 Temperature Pulse Rate 59 L 64 66 Respiratory Rate Blood Pressure Blood Pressure [Right] O2 Sat by Pulse 97 97 98 Oximetry 08/27/20 08/27/20 08/27/20 06:05 06:11 06:16 Temperature Pulse Rate 92 H 78 92 H Respiratory Rate Blood Pressure Blood Pressure [Right] O2 Sat by Pulse 99 99 98 Oximetry 08/27/20 08/27/20 08/27/20 06:21 06:26 06:31 Temperature Pulse Rate 70 66 59 L Respiratory Rate Blood Pressure Blood Pressure [Right] O2 Sat by Pulse 97 98 96 Oximetry 08/27/20 08/27/20 08/27/20 06:36 06:41 06:46 Temperature Pulse Rate 75 86 68 Respiratory Rate Blood Pressure Blood Pressure [Right] O2 Sat by Pulse 97 98 97 Oximetry 08/27/20 08/27/20 08/27/20 06:51 06:56 07:01 Temperature Pulse Rate 80 59 L 65 Respiratory Rate Blood Pressure Blood Pressure [Right] O2 Sat by Pulse 97 98 98 Oximetry 08/27/20 08/27/20 08/27/20 07:06 07:11 07:16 Temperature Pulse Rate 76 91 H 91 H Respiratory Rate Blood Pressure Blood Pressure [Right] O2 Sat by Pulse 98 98 96 Oximetry 08/27/20 08/27/20 08/27/20 07:21 07:26 07:31 Temperature Pulse Rate 79 68 71 Respiratory Rate Blood Pressure Blood Pressure [Right] O2 Sat by Pulse 97 98 97 Oximetry 08/27/20 08/27/20 08/27/20 07:36 07:41 07:46 Temperature Pulse Rate 75 89 91 H Respiratory Rate Blood Pressure Blood Pressure [Right] O2 Sat by Pulse 97 97 98 Oximetry 08/27/20 08/27/20 08/27/20 07:48 07:51 07:56 Temperature Pulse Rate 97 H 84 103 H Respiratory Rate Blood Pressure Blood Pressure [Right] O2 Sat by Pulse 94 97 97 Oximetry 08/27/20 08/27/20 08/27/20 07:57 07:58 08:01 Temperature 98.2 F Pulse Rate 107 H 64 79 Respiratory 18 Rate Blood Pressure 139/86 Blood Pressure 139/86 [Right] O2 Sat by Pulse 97 97 Oximetry 08/27/20 08/27/20 08/27/20 08:02 08:06 08:11 Temperature Pulse Rate 58 L 69 88 Respiratory Rate Blood Pressure Blood Pressure [Right] O2 Sat by Pulse 86 98 99 Oximetry 08/27/20 08/27/20 08/27/20 08:16 08:21 08:26 Temperature Pulse Rate 65 56 L 65 Respiratory Rate Blood Pressure Blood Pressure [Right] O2 Sat by Pulse 98 97 97 Oximetry 08/27/20 08/27/20 08/27/20 08:31 08:36 08:41 Temperature Pulse Rate 58 L 71 65 Respiratory Rate Blood Pressure Blood Pressure [Right] O2 Sat by Pulse 98 98 99 Oximetry 08/27/20 08/27/20 08/27/20 08:46 08:51 08:56 Temperature Pulse Rate 64 65 59 L Respiratory Rate Blood Pressure Blood Pressure [Right] O2 Sat by Pulse 99 99 99 Oximetry 08/27/20 08/27/20 08/27/20 09:01 09:06 09:11 Temperature Pulse Rate 89 73 75 Respiratory Rate Blood Pressure Blood Pressure [Right] O2 Sat by Pulse 100 99 98 Oximetry 08/27/20 08/27/20 08/27/20 09:16 09:21 09:26 Temperature Pulse Rate 75 60 79 Respiratory Rate Blood Pressure Blood Pressure [Right] O2 Sat by Pulse 99 100 81 L Oximetry 08/27/20 08/27/20 11:22 11:27 Temperature Pulse Rate 66 86 Respiratory Rate Blood Pressure Blood Pressure [Right] O2 Sat by Pulse 91 98 Oximetry - Exam Breasts: normal Abdomen: Present: normal appearance, soft, normal bowel sounds Vulva: both: normal Uterus: Present: normal, other (gravid) FHR: auscultation normal, category 1 Uterine Contraction Monitor Mode: External Uterine Contraction Pattern: Regular Uterine Tone Measurement Phase: Resting Uterine Contraction Intensity: Mild Extremities: normal - Labs Labs: Abnormal Labs 08/26/20 15:05 WBC 12.2 H RBC 3.42 L RDW 13.1 L Plt Count 106 L Laboratory Results - last 24 hr 08/26/20 08/26/20 15:05 15:07 WBC 12.2 H RBC 3.42 L Hgb 10.6 Hct 32.2 MCV 94 MCH 31 MCHC 33 RDW 13.1 L Plt Count 106 L Blood Type O POSITIVE Antibody Screen Negative
--- NOTE | 2020-08-27 20:27 | Event Note ---
Date: 08/27/20 no cervical change despite >12 hours on oxytocin plan for d/c oxytocin, allow patient to eat dinner and start [id number] Justa Joiner MD
[2020-08-27] MEDS: miSOPROStol 25 MCG TAB VG SCH (23:06)
[2020-08-28] MEDS: ACETAMINOPHEN 325 MG TAB PO PRN (04:50)
[2020-08-28] MEDS: LACTATED RINGERS 1,000 ML IV SCH ×2 (05:15→17:59)
--- NOTE | 2020-08-28 06:47 | Event Note ---
Date: 08/28/20 heart tones category 1 Regular contractions with 1 dose of Cytotec 25 mcg p.o. Plan for Cytotec 25 mcg per vagina x1 dose We will sign out to day team for further management. Marisel VEGA
[2020-08-28] MEDS: miSOPROStol 25 MCG TAB VG SCH (07:56)
[2020-08-28] MEDS ORDERED: miSOPROStol 25 MCG TAB VG SCH (08:00)
--- NOTE | 2020-08-28 08:50 | Progress Note ---
Assessment and Plan INDUCTION OF LABOR AT 39 WEEKS WITH THROMBOCYTOPENIA. - Patient Problems (1) Acquired thrombocytopenia Current Visit: Yes Status: Acute (2) Supervision of normal IUP (intrauterine ) in multigravida Current Visit: Yes Status: Acute Subjective Date of service: 08/28/20 Principal diagnosis: 39 WKS IUP, THROMBOCYTOPENIA Interval history: LABOR IS NOT PRODUCTIVE. COUTINUE PRESENT MEDS. Objective - Constitutional Vitals: Vital Signs - 12hr 08/27/20 08/27/20 08/28/20 22:11 23:35 01:55 Temperature 99 F 98.5 F 98.1 F Pulse Rate Respiratory 17 Rate Blood Pressure 08/28/20 08/28/20 08/28/20 04:46 04:48 04:49 Temperature 98 F Pulse Rate 67 70 Respiratory 16 Rate Blood Pressure 126/73 120/69 08/28/20 08/28/20 08/28/20 05:17 05:48 06:18 Temperature Pulse Rate 71 61 61 Respiratory Rate Blood Pressure 129/75 152/81 140/83 08/28/20 08/28/20 08/28/20 06:49 07:18 07:34 Temperature 98.6 F Pulse Rate 64 65 Respiratory Rate Blood Pressure 152/82 146/81 08/28/20 07:46 Temperature Pulse Rate 83 Respiratory Rate Blood Pressure 129/72 - Genitourinary Female genitourinary: other (CX 1 CMS, 75%,-4 STATION, BOW INTACT.) - Labs CBC & Chem 7: 08/26/20 15:05 Medications & Allergies - Medications Allergies/Adverse Reactions: Allergies No Known Allergies Allergy (Verified 07/14/20 17:56) Home Medications: Home Medications Medication Instructions Recorded Confirmed Last Taken Type No Known Home Medications [No 08/28/20 08/28/20 Unknown History Reported Home Medications] Active Medications: Generic Name Dose Route Start Last Admin Trade Name Freq PRN Reason Stop Dose Admin Acetaminophen 650 mg 08/26/20 15:00 08/28/20 04:50 Acetaminophen 325 Mg Tab PO 650 mg Q4H PRN Administration Pain, Mild (1-3) Butorphanol Tartrate 1 mg 08/26/20 15:00 Butorphanol 2 Mg/1 Ml Inj IV Q2H PRN Pain, Moderate(4-6) LABOR PAIN Butorphanol Tartrate 2 mg 08/26/20 15:00 Butorphanol 2 Mg/1 Ml Inj IV Q2H PRN Pain , Severe (7-10) Ephedrine Sulfate 10 mg 08/26/20 15:00 Ephedrine Sulfate 50 Mg/1 Ml Inj IV Q2M PRN Hypotension Fentanyl 100 mcg 08/26/20 14:44 Fentanyl 100 Mcg/2 Ml Inj IV Q2H PRN Pain,Severe (7-10) LABOR PAIN Oxytocin/Sodium Chloride 30 units in 500 mls @ 2 mls/hr 08/26/20 15:00 08/27/20 20:13 Pitocin/Ns 30 Unit/500ml IV 0 ml/hr TITR KERRY 0 mls/hr Titration Protocol Lactated Ringer's 1,000 mls @ 125 mls/hr 08/26/20 15:00 08/28/20 05:15 Lactated Ringers IV 125 mls/hr DIRECT KERRY Administration Oxytocin/Sodium Chloride 30 units in 500 mls @ 40 mls/hr 08/26/20 15:00 08/27/20 20:13 Pitocin/Ns 30 Unit/500ml IV 0 ml/hr TITR KERRY 0 mls/hr Titration Protocol Mineral Oil 30 ml 08/26/20 22:00 Mineral Oil 30 Ml Oral Liqd PO QHS PRN Constipation Misoprostol 25 mcg 08/28/20 08:00 Misoprostol 25 Mcg Tab VG 08/28/20 12:01 Q4H KERRY Nalbuphine HCl 10 mg 08/26/20 15:00 Nalbuphine 10 Mg/1 Ml Inj IV Q2H PRN Pain, Moderate (4-6) Naloxone HCl 0.1 mg 08/26/20 15:00 Naloxone 0.4 Mg/1 Ml Inj IV Q2MIN PRN Res Rate </= 8 or 02 SAT < 92% Promethazine HCl 25 mg 08/26/20 15:00 Promethazine 25 Mg Tab PO Q6H PRN Nausea And Vomiting
[2020-08-28] MEDS ORDERED: DINOPROSTONE 10 MG VAG SUPP VG SCH (11:00)
--- NOTE | 2020-08-28 17:24 | Progress Note ---
Assessment and Plan A: IUP @ 39 2/7 Weeks Category I Tracing Thrombocytopenia GBS Negative P: Continue Cervidil Induction Subjective - Subjective Principal diagnosis: 39 WKS IUP, THROMBOCYTOPENIA Patient reports: movement normal, contractions (Feeling contractions with Cervidil) Objective - Vital Signs Vital Signs: Vital Signs - 12hr 08/28/20 08/28/20 08/28/20 05:48 06:18 06:49 Temperature Pulse Rate 61 61 64 Respiratory Rate Blood Pressure 152/81 140/83 152/82 Blood Pressure [Right] 08/28/20 08/28/20 08/28/20 07:18 07:34 07:46 Temperature 98.6 F Pulse Rate 65 83 Respiratory Rate Blood Pressure 146/81 129/72 Blood Pressure [Right] 08/28/20 08/28/20 08/28/20 11:53 11:54 15:00 Temperature 98.8 F 97.6 F Pulse Rate 68 84 Respiratory 16 Rate Blood Pressure 128/67 Blood Pressure 128/67 148/89 [Right] 08/28/20 15:13 Temperature Pulse Rate 84 Respiratory Rate Blood Pressure 148/89 Blood Pressure [Right] - Exam Breasts: normal Cardiovascular: Regular rate Lungs: Clear to auscultation, Normal air movement Abdomen: Present: normal appearance, soft, normal bowel sounds Uterus: Present: normal, firm, fundal height above umbilicus FHR: category 1 Uterine Contraction Monitor Mode: External Cervical Dilatation: 1.5 Cervical Effacement Percentage: 50 station: -3 Uterine Contraction Pattern: Irregular Uterine Tone Measurement Phase: Resting Uterine Contraction Intensity: Mild Extremities: normal - Labs Labs: Abnormal Labs 08/26/20 15:05 WBC 12.2 H RBC 3.42 L RDW 13.1 L Plt Count 106 L
[2020-08-29] MEDS: LACTATED RINGERS 1,000 ML IV SCH ×2 (01:19→10:41)
[2020-08-29] MEDS: ACETAMINOPHEN 325 MG TAB PO PRN (02:22)
[2020-08-29] MEDS: OXYTOCIN DRIP 30 UNITS/500 ML BAG IV SCH ×2 (04:32→16:01)
[2020-08-29] MEDS ORDERED: MAGNESIUM HYDROXIDE (MOM) ORAL LIQD UDC PO PRN (13:28)
[2020-08-29] MEDS ORDERED: LANOLIN/ZINC/DIMETHICONE (LANSINOH) 7 GM TP PRN (13:28)
[2020-08-29] MEDS ORDERED: ONDANSETRON 4 MG/2 ML INJ IV PRN (13:28)
[2020-08-29] MEDS ORDERED: PROMETHAZINE 25 MG TAB PO PRN (13:28)
[2020-08-29] MEDS ORDERED: PROMETHAZINE 25 MG RECT SUPP PR PRN (13:28)
[2020-08-29] MEDS ORDERED: WITCH HAZEL/ GLYCERIN PAD TP PRN (13:28)
[2020-08-29] MEDS ORDERED: diphenhydrAMINE 25 MG CAP PO PRN (13:28)
--- NOTE | 2020-08-29 13:42 | Procedure Note ---
OB Delivery Note - Delivery Date of Delivery: 08/29/20 Surgeon: PAIGE BELLO - Vaginal Delivery presentation: vertex Delivery position: OA Intrapartum events: other(please specify) (thrombocytopenia) Delivery induction: oxytocin Delivery augmentation: rupture of membranes, pitocin Delivery monitor: external FHT, external uterine Route of delivery: Delivery placenta: spontaneous Delivery cord: 3 umbilical vessels Episiotomy: none Delivery laceration: none Anesthesia: intravenous Delivery comments: Called to for delivery SVE 10/100%/+1 and pt was pushing. of a live viable male in OA position. Spontaneous delivery of head and shoulders. was placed on mom's abd/chest for skin to skin bonding while NICU nurse dried and stimulated baby. Delayed cord clamping. Cord was clamped x 2 and FOB was guided in cutting the cord. Infant was taken to infant warmer by NICU nurse. 8/9. Spontaneous delivery of intact placenta with 3CV. FF@ U2 with fundal massage and IV Pitocin. An exploration of tears revealed none. Mom and baby was left in stable condition with nurse. QBL 57cc. FW [id number]. - Infant A at 1 minute: 8 at 5 minutes: 9 Gender: Male (FW [id number])
[2020-08-29] MEDS ORDERED: CARBOPROST TROMETHAMINE 250 MCG/1 ML INJ IM ONE (13:43)
[2020-08-29] MEDS ORDERED: miSOPROStol 200 MCG TAB ONE (13:43)
[2020-08-29] MEDS ORDERED: miSOPROStol 200 MCG TAB VG SCH (14:00)
[2020-08-29] MEDS: IBUPROFEN 600 MG TAB PO SCH ×3 (14:20→23:58)
[2020-08-29] MEDS ORDERED: CARBOPROST TROMETHAMINE 250 MCG/1 ML INJ IM SCH (14:30)
--- NOTE | 2020-08-29 14:56 | Event Note ---
Date: 08/29/20 Called to r/t intermittent trickle of vag bleeding. Small clots were expelled. Fundus became firm @ U3 after a catherization for 400cc of cl yellow urine, Cytotec 800mcg, and Hemabate 250mcg IM. QBL 56+350= [address] Mckeon was notified.
[2020-08-29 19:00] LABS: Basophils % (Auto) 0.3 % (0.0-1.8); Eosinophils % (Auto) 0.1 % (0.0-4.3); Hematocrit 35.9 % (30.3-42.9); Hemoglobin 12.1 gm/dl (10.1-14.3); Lymphocytes # (Auto) 1.1 K/mm3 (1.2-5.4); Lymphocytes % (Auto) 9.9 % (13.4-35.0); Mean Corpuscular HGB Conc 34 % (30-34); Mean Corpuscular Volume 95 fl (79-97); Monocytes # (Auto) 0.6 K/mm3 (0.0-0.8); Monocytes % (Auto) 5.7 % (0.0-7.3); Red Cell Distribution Width 13.4 % (13.2-15.2)
[2020-08-29 19:01] LABS: Platelet Count 106 K/mm3 (140-440)
[2020-08-30 03:43] LABS: Hematocrit 29.4 % (30.3-42.9); Hemoglobin 9.9 gm/dl (10.1-14.3)
[2020-08-30] MEDS: IBUPROFEN 600 MG TAB PO SCH ×3 (05:19→17:57)
[2020-08-30] MEDS ORDERED: FERROUS SULFATE 325 MG TAB PO SCH (13:00)
--- NOTE | 2020-08-30 13:52 | Progress Note ---
Assessment and Plan A: day 1 S/P . Elevated blood pressure. Anemia. P: Supplement with oral iron. CBC, CMP, LDH, uric acid done. Ordered Labetalol 100 mg po BID. Subjective - Subjective Date of service: 08/30/20 Principal diagnosis: day 1 S/P Interval history: Denies headache, visual disturbance, nausea or vomiting, abdominal pain, chest pain, heavy bleeding, or any other problems. Patient reports: appetite normal, voiding normally, pain well controlled, flatus, ambulating normally, no dizzy ambulation, no nauseated : doing well Objective - Vital Signs Latest vital signs: Vital Signs Temp Pulse Resp BP Pulse Ox 08/30/20 12:24 98.4 F 69 20 150/96 99 08/30/20 07:19 98.0 F 70 20 148/92 98 08/30/20 05:19 20 08/30/20 00:02 98.3 F 60 18 126/70 99 08/29/20 23:58 20 08/29/20 19:54 98.1 F 68 20 124/64 97 08/29/20 17:58 64 17 140/91 99 08/29/20 16:37 97.4 F L 17 155/102 08/29/20 16:20 68 153/95 08/29/20 16:06 60 149/78 08/29/20 16:03 67 173/81 08/29/20 16:00 66 161/89 08/29/20 15:17 69 145/86 08/29/20 14:45 68 147/72 08/29/20 14:29 60 154/95 08/29/20 14:16 67 153/90 08/29/20 14:12 54 L 143/81 08/29/20 14:09 65 163/84 08/29/20 14:06 64 174/83 08/29/20 14:04 72 176/80 08/29/20 14:01 84 175/80 08/29/20 13:59 60 170/90 08/29/20 13:57 65 178/89 Intake and Output 08/29/20 08/30/20 08/30/20 23:59 07:59 15:59 Intake Total 360 120 Output Total 550 Balance -190 120 Intake: IV 0 PITOCin/NS 30 UNIT/500ML 0 30 units In 500 ml @ 40 mls/hr IV TITR KERRY Rx#: [id number] Oral 120 Intake, Free Water 360 Output: Urine 550 Void 550 Other: Total, Intake Amount 120 Total, Output Amount 550 # Voids Void 1 Estimated Blood Loss 406 - Exam Cardiovascular: Present: Regular rate Lungs: Present: Clear to auscultation Abdomen: Present: normal appearance, soft. Absent: distention, tenderness, guarding, rigidity Uterus: Present: normal, firm, fundal height below umbilicus. Absent: bogginess, tenderness Extremities: Present: edema (bilateral pedal edema; no generalized edema noted) - Labs Labs: Abnormal lab results 08/29/20 08/30/20 Range/Units 18:21 03:18 Hgb 9.9 L (10.1-14.3) gm/dl Hct 29.4 L D (30.3-42.9) % Plt Count 106 L (140-440) K/mm3 Lymph % (Auto) 9.9 L (13.4-35.0) % Lymph # (Auto) 1.1 L (1.2-5.4) K/mm3 Seg Neutrophils % 84.0 H (40.0-70.0) % Seg Neutrophils # 9.0 H (1.8-7.7) K/mm3
[2020-08-30 16:53] VITALS: BP 140/85
[2020-08-30 17:06] LABS: Basophils # (Auto) 0.2 K/mm3 (0.0-0.1); Basophils % (Auto) 2.7 % (0.0-1.8); Eosinophils # (Auto) 0.1 K/mm3 (0.0-0.4); Eosinophils % (Auto) 1.3 % (0.0-4.3); Hematocrit 31.4 % (30.3-42.9); Hemoglobin 10.6 gm/dl (10.1-14.3); Lymphocytes # (Auto) 1.7 K/mm3 (1.2-5.4); Lymphocytes % (Auto) 18.8 % (13.4-35.0); Mean Corpuscular HGB Conc 34 % (30-34); Mean Corpuscular Volume 94 fl (79-97); Monocytes # (Auto) 0.7 K/mm3 (0.0-0.8); Monocytes % (Auto) 7.7 % (0.0-7.3); Platelet Count 105 K/mm3 (140-440); Red Blood Count 3.33 M/mm3 (3.65-5.03); Red Cell Distribution Width 13.5 % (13.2-15.2)
[2020-08-30 17:30] LABS: Alanine Aminotransferase 10 units/L (7-56); Albumin 2.9 g/dL (3.9-5); Blood Urea Nitrogen 4 mg/dL (7-17); Calcium 8.1 mg/dL (8.4-10.2); Hemolysis Index 6
[2020-08-30 17:31] LABS: BUN/Creatinine Ratio 6
[2020-08-30 18:32] LABS: Uric Acid 4.7 mg/dL (3.5-7.6)
--- NOTE | 2020-08-31 05:48 | Discharge Summary ---
Providers - Providers Date of Admission: 08/26/20 14:44 Attending physician: WILLI CHAIREZ MD Patient signed out against medical advice on 08/30/2020. Primary care physician: WILLI CHAIREZ MD Hospitalization Condition at discharge: Stable Disposition: [id number] LEFT AGAINST MED ADVICE Plan - Provider Discharge Summary Additional instructions: [] Smoking cessation referral if applicable(refer to patient education folder for contact #) [] Refer to [facility] Booklet Call your doctor immediately for: * Fever > 100.5 * Heavy vaginal bleeding ( >1 pad per hour) * Severe persistent headache * Shortness of breath * Reddened, hot, painful area to leg or breast * Drainage or odor from incision. * Keep incision clean and dry at all times and follow doctor's instructions regarding bathing/showering - Follow up plan Follow up: WILLI CHAIREZ MD [Primary Care Provider] - 7 Days
== END 2020-08-30 20:40 | disposition left against medical advice (07) | DRG 775 ==
LOC: TRG 11:38 → LD 11:51 → TRG 14:44 → OB 08-29 16:47
PROVIDERS: ADMIT Obstetrics & Gynecology; ATTEND Obstetrics & Gynecology
PROC: 10E0XZZ Delivery of Products of Conception, External Approach (ICD-10-PCS; principal; 2020-08-29)
PROC: 3E033VJ Introduction of Other Hormone into Peripheral Vein, Percutaneous Approach (ICD-10-PCS; 2020-08-30)
DX: O99.12 Other diseases of the blood and blood-forming organs and certain disorders involving the immune mechanism complicating childbirth (principal); D69.6 Thrombocytopenia, unspecified; Z3A.39 39 weeks gestation of pregnancy; Z37.0 Single live birth; O90.81 Anemia of the puerperium; Z20.822 Contact with and (suspected) exposure to COVID-19; D64.9 Anemia, unspecified
CPT/HCPCS: 36415; 59025; 80053; 83615; 84550; 85014; 85018; 85025; 85027; 86850; 86900; 86901; 96360; 96372; G0378; J0595; J2590; J3010; J7120; U0003